=== PATIENT | female | born 1970 | race African-American/Black ===

== ENCOUNTER 2021-06-27 11:14 | Emergency (ER) | payer OTHER ==
[2021-06-27 12:33] VITALS: BMI 24.2
[2021-06-27] MEDS ORDERED: PRESCRIPTION PAD 1 EACH EACH NR ONE (15:11)
[2021-06-28 13:16] VITALS: BP 126/82; PULSE 96; TEMP 99.1
== END 2021-06-28 13:44 | disposition home or self-care (01) ==
LOC: JER 11:14
DX: Z48.01 Encounter for change or removal of surgical wound dressing (principal)
CPT/HCPCS: 99281-25

== ENCOUNTER 2022-06-08 12:45 | Inpatient (IN) | payer OTHER ==
[2022-06-08] MEDS ORDERED: SODIUM CHLORIDE 2,082 ML IV ONE (12:55)
[2022-06-08] MEDS ORDERED: VANCOMYCIN 1 GM in D5W (PRE-DOCKED) 1,000 MG/250 ML IVPB ONE (13:05)
[2022-06-08] MEDS ORDERED: PIPERACILLIN/TAZOB 4.5 GM 4.5 GM in DEXTROSE 5%-WATER 100 ML IVPB ONE (13:05)
[2022-06-08] MEDS ORDERED: VANCOMYCIN/WATER FOR INJ (PEG) 1,000 MG/200 ML BAG IVPB ONE (13:11)
[2022-06-08] MEDS ORDERED: PIPERACILLIN/TAZOB 4.5 GM 4.5 GM/100 ML BAG IVPB ONE (13:11)
[2022-06-08] MEDS ORDERED: ACETAMINOPHEN 1000 MG/100 ML BAG IVPB ONE (13:24)
[2022-06-08] MEDS ORDERED: ACETAMINOPHEN INJECTION 100 ML IVPB ONE (13:39)
[2022-06-08 14:39] LABS: HEMATOCRIT 33.8 % (32.4-45.2); HEMOGLOBIN 10.8 GM/dL (10.7-15.3); MCHC 31.9 g/dl (32.0-36.0); MEAN CELL VOLUME 75.2 fl (80-96); MEAN PLT VOLUME 9.3 fl (7.5-11.1); PLATELET COUNT 342 10^3/uL (134-434); RBC 4.49 M/mm3 (3.60-5.2); RDW 15.3 % (11.6-15.6); WHITE BLOOD COUNT 23.3 K/mm3 (4.0-10.0)
[2022-06-08 14:47] LABS: INR 1.58 (0.83-1.09); PROTHROMBIN TIME (PATIENT) 18.2 SEC (9.7-13.0)
[2022-06-08 14:50] LABS: EPI CELLS >36 /uL (0-25.1); HYALINE CASTS 3 /uL (0-3.1); PH,URINE >= 9.0 (5.0-8.0); URINE APPEARANCE TURBID; URINE BACTERIA 2469 /uL (0-1359); URINE BILIRUBIN 1+ (NEGATIVE); URINE COLOR RED; URINE GLUCOSE (UA) NEGATIVE (NEGATIVE); URINE KETONE NEGATIVE (NEGATIVE); URINE LEUK ESTERASE 3+ (NEGATIVE); URINE NITRITE POSITIVE (NEGATIVE); URINE PROTEIN 3+ (NEGATIVE); URINE RBC 714 /uL (0-23.9); URINE UROBILINOGEN 0.2 mg/dL (0.2-1.0); URINE WBC 73 /uL (0-25.8)
[2022-06-08 14:56] LABS: CHLORIDE 98 mmol/L (98-107); SODIUM 132 mmol/L (136-145)
[2022-06-08 15:00] LABS: BLOOD UREA NITROGEN 70.2 mg/dL (7-18); CO2 20 mmol/L (21-32); GLUCOSE,RANDOM 137 mg/dL (74-106)
[2022-06-08 15:01] LABS: ALBUMIN 2.2 g/dl (3.4-5.0)
[2022-06-08 15:02] LABS: ANISOCYTOSIS 1+; MACROCYTOSIS 0
[2022-06-08 15:03] LABS: SGOT/AST 71 U/L (15-37); SGPT/ALT 95 U/L (13-61)
[2022-06-08 15:06] LABS: BILIRUBIN,TOTAL 0.4 mg/dL (0.2-1); TOT PROT 7.8 g/dl (6.4-8.2); VENOUS BASE EXCESS -0.6 mmol/L (-2-2); VENOUS O2 SATURATION 89.2 % (70-80); VENOUS PCO2 38.8 mmHg (38-52); VENOUS PH 7.407 (7.310-7.410)
[2022-06-08 15:07] LABS: ALK PHOS 207 U/L (45-117)
[2022-06-08 15:31] LABS: ANION GAP 13 MMOL/L (8-16)
[2022-06-08] MEDS ORDERED: CALCIUM GLUCONATE 10% - 1,000 MG/10 ML VIAL IVPB ONE (15:34)
[2022-06-08] MEDS ORDERED: INSULIN REGULAR HUMAN 100 UNITS/ML *VIAL IVPUSH ONE (15:37)
[2022-06-08] MEDS: ALBUTEROL SO4 2.5/IPRATROPIUM 0.5 INH SOL 3 ML VIAL.NEB. NEB SCH ×4 (15:45→16:45)
[2022-06-08] MEDS ORDERED: DEXTROSE 50%-WATER - 25 GM/50 ML VIAL IVPUSH ONE (15:52)
[2022-06-08] MEDS ORDERED: ALBUTEROL SO4 2.5/IPRATROPIUM 0.5 INH SOL 3 ML VIAL.NEB. NEB ONE (16:06)
[2022-06-08] MEDS ORDERED: CALCIUM GLUCONATE 10% - 1,000 MG/10 ML VIAL ONE (16:07)
[2022-06-08] MEDS ORDERED: DEXTROSE 50%-WATER 25 GM/50 ML DISP.SYRIN ONE (16:07)
[2022-06-08] MEDS ORDERED: INSULIN REGULAR HUMAN 100 UNITS/ML *VIAL ONE (16:08)
[2022-06-08] MEDS ORDERED: LACTATED RINGERS SOLUTION 1000 ML INFUS.BAG IV ONE (17:39)
[2022-06-08 21:52] LABS: CALCIUM 9.2 mg/dL (8.5-10.1)
[2022-06-08] MEDS ORDERED: SODIUM PHOSPHATE/NA BIPHOS 133 ML ENEMA RC ONE (21:52)
[2022-06-08 21:53] LABS: BLOOD UREA NITROGEN 60.5 mg/dL (7-18)
[2022-06-08 21:55] LABS: CREATININE 2.3 mg/dL (0.55-1.3)
[2022-06-08 23:01] LABS: BILIRUBIN,DIRECT 0.3 mg/dL (0.0-0.2)
[2022-06-08 23:03] LABS: BILIRUBIN,TOTAL 0.5 mg/dL (0.2-1); TOT PROT 7.2 g/dl (6.4-8.2)
[2022-06-08] MEDS ORDERED: ACETAMINOPHEN 1000 MG/100 ML BAG IVPB PRN (23:10)
[2022-06-08] MEDS ORDERED: SODIUM CHLORIDE 1,000 ML IV SCH (23:15)
[2022-06-08] MEDS: POLYETHYLENE GLYCOL (HEALTHYLAX) 3350 17 GM PACKET PO SCH (23:39)
[2022-06-09] MEDS: PIPERACILLIN/TAZOB 3.375 GM 3.375 GM in DEXTROSE 5%-WATER - 50 ML IVPB SCH ×6 (00:04→17:44)
[2022-06-09 03:12] VITALS: BMI 24.5
[2022-06-09 08:44] LABS: BASO % 0.2 % (0-2.0); EOS % 0.5 % (0-4.5); HEMATOCRIT 31.9 % (32.4-45.2); HEMOGLOBIN 9.9 GM/dL (10.7-15.3); LYMPH % 4.7 % (8-40); MCH 23.7 pg (25.7-33.7); MEAN CELL VOLUME 76.6 fl (80-96); MEAN PLT VOLUME 9.2 fl (7.5-11.1); MONO % 5.4 % (3.8-10.2); NEUT % 89.2 % (42.8-82.8); PLATELET COUNT 307 10^3/uL (134-434); RBC 4.17 M/mm3 (3.60-5.2); RDW 15.7 % (11.6-15.6); WHITE BLOOD COUNT 15.3 K/mm3 (4.0-10.0)
[2022-06-09 09:03] LABS: CREATININE 1.7 mg/dL (0.55-1.3)
[2022-06-09 09:04] LABS: BLOOD UREA NITROGEN 46.5 mg/dL (7-18)
[2022-06-09 09:06] LABS: BILIRUBIN,TOTAL 0.5 mg/dL (0.2-1)
[2022-06-09 09:07] LABS: CALCIUM 9.2 mg/dL (8.5-10.1); MAGNESIUM 2.2 mg/dL (1.8-2.4); PHOSPHOROUS 4.9 mg/dL (2.5-4.9)
[2022-06-09] MEDS ORDERED: VANCOMYCIN 1 GM in D5W (PRE-DOCKED) 1,000 MG/250 ML IVPB SCH (10:00)
[2022-06-09] MEDS ORDERED: VANCOMYCIN/WATER FOR INJ (PEG) 1,000 MG/200 ML BAG IVPB SCH (10:00)
[2022-06-09] MEDS ORDERED: VANCOMYCIN 1 GM/200 ML PREMIX BAG IVPB SCH (10:00)
[2022-06-09] MEDS: POLYETHYLENE GLYCOL (HEALTHYLAX) 3350 17 GM PACKET PO SCH (11:12)
[2022-06-09] MEDS ORDERED: ACETAMINOPHEN 1000 MG/100 ML BAG IVPB PRN (15:42)
[2022-06-09] MEDS ORDERED: SODIUM CHLORIDE 1,000 ML IV SCH (15:42)
[2022-06-09] MEDS ORDERED: PIPERACILLIN/TAZOB 3.375 GM 3.375 GM in DEXTROSE 5%-WATER - 50 ML IVPB SCH (18:00)
[2022-06-09] MEDS: SODIUM CHLORIDE 0.45% 1,000 ML IV SCH (18:27)
[2022-06-09] MEDS: CARVEDILOL 25 MG TABLET (FP) GT SCH (22:20)
[2022-06-09] MEDS: METOPROLOL TARTRATE 25 MG TABLET (FP) GT SCH (22:20)
[2022-06-10] MEDS: PIPERACILLIN/TAZOB 3.375 GM 3.375 GM in DEXTROSE 5%-WATER - 50 ML IVPB SCH ×2 (02:53→11:25)
[2022-06-10] MEDS: SODIUM CHLORIDE 0.45% 1,000 ML IV SCH (06:26)
[2022-06-10 09:26] LABS: HEMATOCRIT 26.7 % (32.4-45.2); HEMOGLOBIN 8.4 GM/dL (10.7-15.3); MCH 23.9 pg (25.7-33.7); MCHC 31.4 g/dl (32.0-36.0); MEAN CELL VOLUME 76.1 fl (80-96); MEAN PLT VOLUME 9.6 fl (7.5-11.1); PLATELET COUNT 295 10^3/uL (134-434); RBC 3.51 M/mm3 (3.60-5.2); RDW 15.5 % (11.6-15.6); WHITE BLOOD COUNT 11.6 K/mm3 (4.0-10.0)
[2022-06-10 09:52] LABS: ALBUMIN 1.8 g/dl (3.4-5.0); BLOOD UREA NITROGEN 34.6 mg/dL (7-18); CALCIUM 8.9 mg/dL (8.5-10.1); MAGNESIUM 1.8 mg/dL (1.8-2.4)
[2022-06-10 09:55] LABS: PHOSPHOROUS 2.1 mg/dL (2.5-4.9); TOT PROT 6.5 g/dl (6.4-8.2)
[2022-06-10 09:56] LABS: BILIRUBIN,TOTAL 0.3 mg/dL (0.2-1)
[2022-06-10] MEDS ORDERED: POLYETHYLENE GLYCOL (HEALTHYLAX) 3350 17 GM PACKET PO SCH (10:00)
[2022-06-10] MEDS ORDERED: VANCOMYCIN 1 GM in D5W (PRE-DOCKED) 1,000 MG/250 ML IVPB SCH (10:00)
[2022-06-10] MEDS: CARVEDILOL 25 MG TABLET (FP) GT SCH ×2 (11:26→22:16)
[2022-06-10] MEDS: METOPROLOL TARTRATE 25 MG TABLET (FP) GT SCH ×2 (11:26→22:16)
[2022-06-10] MEDS: ERTAPENEM SODIUM 1 GM in SODIUM CHLORIDE 50 ML IVPB SCH (15:10)
[2022-06-10] MEDS: METHIMAZOLE 10 MG TABLET PO SCH ×3 (17:15→23:46)
[2022-06-10] MEDS ORDERED: METHIMAZOLE 10 MG TABLET GT SCH (23:12)
[2022-06-10] MEDS: METHIMAZOLE 10 MG TABLET GT SCH (23:45)
[2022-06-11] MEDS: METHIMAZOLE 10 MG TABLET GT SCH ×3 (06:25→22:06)
[2022-06-11 10:55] LABS: BASO % 0.5 % (0-2.0); EOS % 3.6 % (0-4.5); HEMATOCRIT 29.5 % (32.4-45.2); HEMOGLOBIN 9.7 GM/dL (10.7-15.3); LYMPH % 16.4 % (8-40); MCH 24.8 pg (25.7-33.7); MCHC 32.8 g/dl (32.0-36.0); MEAN CELL VOLUME 75.7 fl (80-96); MEAN PLT VOLUME 8.7 fl (7.5-11.1); MONO % 9.1 % (3.8-10.2); NEUT % 70.4 % (42.8-82.8); PLATELET COUNT 326 10^3/uL (134-434); RBC 3.89 M/mm3 (3.60-5.2); RDW 15.8 % (11.6-15.6); WHITE BLOOD COUNT 8.3 K/mm3 (4.0-10.0)
[2022-06-11 11:21] LABS: ALBUMIN 1.9 g/dl (3.4-5.0); BLOOD UREA NITROGEN 22.7 mg/dL (7-18); CALCIUM 8.9 mg/dL (8.5-10.1)
[2022-06-11 11:24] LABS: CREATININE 0.7 mg/dL (0.55-1.3)
[2022-06-11 11:26] LABS: BILIRUBIN,TOTAL 0.2 mg/dL (0.2-1)
[2022-06-11] MEDS: POLYETHYLENE GLYCOL (HEALTHYLAX) 3350 17 GM PACKET GT SCH (11:48)
[2022-06-11] MEDS: ERTAPENEM SODIUM 1 GM in SODIUM CHLORIDE 50 ML IVPB SCH (11:49)
[2022-06-11] MEDS: METOPROLOL TARTRATE 25 MG TABLET (FP) GT SCH ×2 (11:50→22:06)
[2022-06-11] MEDS: CARVEDILOL 25 MG TABLET (FP) GT SCH ×2 (11:50→22:06)
[2022-06-12] MEDS: METHIMAZOLE 10 MG TABLET GT SCH ×3 (06:52→22:47)
[2022-06-12] MEDS ORDERED: DEXTROSE 5%-WATER - 1,000 ML IV SCH (08:30)
[2022-06-12] MEDS: ERTAPENEM SODIUM 1 GM in SODIUM CHLORIDE 50 ML IVPB SCH (11:31)
[2022-06-12] MEDS: POLYETHYLENE GLYCOL (HEALTHYLAX) 3350 17 GM PACKET GT SCH (11:31)
[2022-06-12] MEDS: METOPROLOL TARTRATE 25 MG TABLET (FP) GT SCH ×2 (11:32→22:47)
[2022-06-12] MEDS: CARVEDILOL 25 MG TABLET (FP) GT SCH ×2 (11:32→22:47)
[2022-06-12 13:35] LABS: CALCIUM 8.8 mg/dL (8.5-10.1)
[2022-06-12 13:36] LABS: ALBUMIN 1.9 g/dl (3.4-5.0); BLOOD UREA NITROGEN 18.3 mg/dL (7-18); MAGNESIUM 1.5 mg/dL (1.8-2.4)
[2022-06-12 13:39] LABS: CREATININE 0.6 mg/dL (0.55-1.3)
[2022-06-12 13:40] LABS: BILIRUBIN,TOTAL 0.2 mg/dL (0.2-1); TOT PROT 7.2 g/dl (6.4-8.2)
[2022-06-12 13:41] LABS: PHOSPHOROUS 3.3 mg/dL (2.5-4.9)
[2022-06-12] MEDS: DEXTROSE 5%-WATER - 1,000 ML IV SCH (22:48)
[2022-06-13] MEDS: METHIMAZOLE 10 MG TABLET GT SCH ×3 (06:01→22:36)
[2022-06-13] MEDS: METOPROLOL TARTRATE 25 MG TABLET (FP) GT SCH ×2 (09:55→22:36)
[2022-06-13] MEDS: CARVEDILOL 25 MG TABLET (FP) GT SCH ×2 (09:55→22:37)
[2022-06-13] MEDS: POLYETHYLENE GLYCOL (HEALTHYLAX) 3350 17 GM PACKET GT SCH (09:55)
[2022-06-13 09:58] LABS: HEMATOCRIT 27.6 % (32.4-45.2); HEMOGLOBIN 8.9 GM/dL (10.7-15.3); MCH 24.4 pg (25.7-33.7); MCHC 32.2 g/dl (32.0-36.0); MEAN CELL VOLUME 75.8 fl (80-96); MEAN PLT VOLUME 9.1 fl (7.5-11.1); PLATELET COUNT 317 10^3/uL (134-434); RBC 3.63 M/mm3 (3.60-5.2); RDW 15.8 % (11.6-15.6)
[2022-06-13 10:50] LABS: ALBUMIN 1.8 g/dl (3.4-5.0); BLOOD UREA NITROGEN 16.4 mg/dL (7-18); CALCIUM 8.6 mg/dL (8.5-10.1); MAGNESIUM 1.5 mg/dL (1.8-2.4)
[2022-06-13 10:53] LABS: CREATININE 0.6 mg/dL (0.55-1.3); PHOSPHOROUS 3.1 mg/dL (2.5-4.9)
[2022-06-13 10:54] LABS: BILIRUBIN,TOTAL 0.1 mg/dL (0.2-1); TOT PROT 6.8 g/dl (6.4-8.2)
[2022-06-13] MEDS: ERTAPENEM SODIUM 1 GM in SODIUM CHLORIDE 50 ML IVPB SCH (11:47)
[2022-06-13] MEDS: DEXTROSE 5%-WATER - 1,000 ML IV SCH (14:53)
[2022-06-13] MEDS ORDERED: MAGNESIUM 2GM/50ML STERILE WATER IVPB IVPB ONE (15:50)
[2022-06-14] MEDS: METHIMAZOLE 10 MG TABLET GT SCH ×3 (06:31→21:05)
[2022-06-14 09:11] LABS: HEMATOCRIT 26.7 % (32.4-45.2); HEMOGLOBIN 8.7 GM/dL (10.7-15.3); MCH 24.7 pg (25.7-33.7); MCHC 32.5 g/dl (32.0-36.0); MEAN CELL VOLUME 75.8 fl (80-96); MEAN PLT VOLUME 9.2 fl (7.5-11.1); PLATELET COUNT 354 10^3/uL (134-434); RBC 3.52 M/mm3 (3.60-5.2); RDW 15.9 % (11.6-15.6); WHITE BLOOD COUNT 11.1 K/mm3 (4.0-10.0)
[2022-06-14 09:40] LABS: ALBUMIN 1.8 g/dl (3.4-5.0); CALCIUM 8.8 mg/dL (8.5-10.1)
[2022-06-14 09:42] LABS: BILIRUBIN,TOTAL 0.2 mg/dL (0.2-1)
[2022-06-14 09:43] LABS: BLOOD UREA NITROGEN 16.3 mg/dL (7-18); CREATININE 0.6 mg/dL (0.55-1.3); PHOSPHOROUS 3.2 mg/dL (2.5-4.9)
[2022-06-14] MEDS: METOPROLOL TARTRATE 25 MG TABLET (FP) GT SCH ×2 (09:44→21:05)
[2022-06-14] MEDS: CARVEDILOL 25 MG TABLET (FP) GT SCH ×2 (09:44→21:04)
[2022-06-14] MEDS: POLYETHYLENE GLYCOL (HEALTHYLAX) 3350 17 GM PACKET GT SCH (09:44)
[2022-06-14 09:45] LABS: MAGNESIUM 1.7 mg/dL (1.8-2.4)
[2022-06-14] MEDS ORDERED: MAGNESIUM 2GM/50ML STERILE WATER IVPB IVPB ONE (13:27)
[2022-06-15] MEDS: METHIMAZOLE 10 MG TABLET GT SCH ×3 (06:41→22:12)
[2022-06-15 08:55] LABS: HEMATOCRIT 28.1 % (32.4-45.2); HEMOGLOBIN 8.8 GM/dL (10.7-15.3); MCH 23.8 pg (25.7-33.7); MCHC 31.5 g/dl (32.0-36.0); MEAN CELL VOLUME 75.4 fl (80-96); MEAN PLT VOLUME 9.4 fl (7.5-11.1); PLATELET COUNT 400 10^3/uL (134-434); RBC 3.72 M/mm3 (3.60-5.2); RDW 15.7 % (11.6-15.6); WHITE BLOOD COUNT 7.6 K/mm3 (4.0-10.0)
[2022-06-15 09:19] LABS: ALBUMIN 1.8 g/dl (3.4-5.0); BLOOD UREA NITROGEN 20.3 mg/dL (7-18); MAGNESIUM 1.8 mg/dL (1.8-2.4)
[2022-06-15 09:22] LABS: CREATININE 0.8 mg/dL (0.55-1.3); PHOSPHOROUS 3.6 mg/dL (2.5-4.9)
[2022-06-15 09:23] LABS: TOT PROT 7.2 g/dl (6.4-8.2)
[2022-06-15 09:34] LABS: BILIRUBIN,TOTAL 0.1 mg/dL (0.2-1)
[2022-06-15] MEDS: FAMOTIDINE 40 MG/5 ML ORAL SUSPENSION PEG SCH (10:34)
[2022-06-15] MEDS: MULTIVIT-MINERALS ORAL LIQUID GT SCH (10:34)
[2022-06-15] MEDS: POLYETHYLENE GLYCOL (HEALTHYLAX) 3350 17 GM PACKET GT SCH (10:35)
[2022-06-15] MEDS: CARVEDILOL 25 MG TABLET (FP) GT SCH ×2 (10:35→22:12)
[2022-06-15] MEDS: CYANOCOBALAMIN 1,000 MCG TABLET (FP) GT SCH (10:35)
[2022-06-15] MEDS: FOLIC ACID 1 MG TABLET (FP) GT SCH (10:35)
[2022-06-15] MEDS: METOPROLOL TARTRATE 25 MG TABLET (FP) GT SCH ×2 (10:35→22:12)
[2022-06-15] MEDS: AMINO ACIDS/PROTEIN HYDROLYS 30 ML LIQUID.PKT PO SCH (17:47)
[2022-06-15] MEDS: VANCOMYCIN 250 MG/5 ML ORAL SOLUTION PO SCH ×2 (17:47→23:42)
[2022-06-16] MEDS: METHIMAZOLE 10 MG TABLET GT SCH ×3 (05:14→21:53)
[2022-06-16] MEDS: VANCOMYCIN 250 MG/5 ML ORAL SOLUTION PO SCH ×4 (05:17→23:55)
[2022-06-16] MEDS: CARVEDILOL 25 MG TABLET (FP) GT SCH ×2 (09:51→21:56)
[2022-06-16] MEDS: AMINO ACIDS/PROTEIN HYDROLYS 30 ML LIQUID.PKT PO SCH ×2 (09:51→18:13)
[2022-06-16] MEDS: METOPROLOL TARTRATE 25 MG TABLET (FP) GT SCH ×2 (09:52→21:56)
[2022-06-16] MEDS: CYANOCOBALAMIN 1,000 MCG TABLET (FP) GT SCH (09:52)
[2022-06-16] MEDS: FOLIC ACID 1 MG TABLET (FP) GT SCH (09:52)
[2022-06-16] MEDS: MULTIVIT-MINERALS ORAL LIQUID GT SCH (09:52)
[2022-06-16] MEDS: POLYETHYLENE GLYCOL (HEALTHYLAX) 3350 17 GM PACKET GT SCH (09:52)
[2022-06-16] MEDS: FAMOTIDINE 40 MG/5 ML ORAL SUSPENSION PEG SCH (09:53)
[2022-06-17] MEDS: VANCOMYCIN 250 MG/5 ML ORAL SOLUTION PO SCH ×2 (05:02→14:51)
[2022-06-17] MEDS: METHIMAZOLE 10 MG TABLET GT SCH ×3 (05:40→21:07)
[2022-06-17] MEDS: AMINO ACIDS/PROTEIN HYDROLYS 30 ML LIQUID.PKT PO SCH (09:27)
[2022-06-17] MEDS: CYANOCOBALAMIN 1,000 MCG TABLET (FP) GT SCH (09:29)
[2022-06-17] MEDS: FOLIC ACID 1 MG TABLET (FP) GT SCH (09:30)
[2022-06-17] MEDS: POLYETHYLENE GLYCOL (HEALTHYLAX) 3350 17 GM PACKET GT SCH (09:30)
[2022-06-17] MEDS: MULTIVIT-MINERALS ORAL LIQUID GT SCH (09:31)
[2022-06-17] MEDS: CARVEDILOL 25 MG TABLET (FP) GT SCH ×2 (09:31→21:07)
[2022-06-17] MEDS: METOPROLOL TARTRATE 25 MG TABLET (FP) GT SCH ×2 (09:32→21:07)
[2022-06-17] MEDS: FAMOTIDINE 40 MG/5 ML ORAL SUSPENSION PEG SCH (09:34)
[2022-06-17] MEDS: AMINO ACIDS/PROTEIN HYDROLYS 30 ML LIQUID.PKT GT SCH (17:40)
[2022-06-17] MEDS: VANCOMYCIN 250 MG/5 ML ORAL SOLUTION GT SCH (17:40)
[2022-06-18] MEDS: VANCOMYCIN 250 MG/5 ML ORAL SOLUTION GT SCH ×4 (01:45→17:07)
[2022-06-18] MEDS: METHIMAZOLE 10 MG TABLET GT SCH ×3 (05:45→22:37)
[2022-06-18] MEDS: MULTIVIT-MINERALS ORAL LIQUID GT SCH (10:12)
[2022-06-18] MEDS: CYANOCOBALAMIN 1,000 MCG TABLET (FP) GT SCH (10:12)
[2022-06-18] MEDS: FOLIC ACID 1 MG TABLET (FP) GT SCH (10:12)
[2022-06-18] MEDS: METOPROLOL TARTRATE 25 MG TABLET (FP) GT SCH ×2 (10:12→22:37)
[2022-06-18] MEDS: CARVEDILOL 25 MG TABLET (FP) GT SCH ×2 (10:12→22:37)
[2022-06-18] MEDS: POLYETHYLENE GLYCOL (HEALTHYLAX) 3350 17 GM PACKET GT SCH (10:12)
[2022-06-18] MEDS: AMINO ACIDS/PROTEIN HYDROLYS 30 ML LIQUID.PKT GT SCH ×2 (10:12→17:07)
[2022-06-18] MEDS: FAMOTIDINE 40 MG/5 ML ORAL SUSPENSION PEG SCH (10:14)
[2022-06-19] MEDS: VANCOMYCIN 250 MG/5 ML ORAL SOLUTION GT SCH ×5 (01:26→23:01)
[2022-06-19] MEDS: METHIMAZOLE 10 MG TABLET GT SCH ×3 (06:40→22:55)
[2022-06-19 09:31] LABS: CALCIUM 9.3 mg/dL (8.5-10.1)
[2022-06-19 09:32] LABS: BLOOD UREA NITROGEN 29.3 mg/dL (7-18)
[2022-06-19 09:34] LABS: CREATININE 0.7 mg/dL (0.55-1.3)
[2022-06-19] MEDS: POLYETHYLENE GLYCOL (HEALTHYLAX) 3350 17 GM PACKET GT SCH (10:23)
[2022-06-19] MEDS: AMINO ACIDS/PROTEIN HYDROLYS 30 ML LIQUID.PKT GT SCH ×2 (10:23→16:31)
[2022-06-19] MEDS: MULTIVIT-MINERALS ORAL LIQUID GT SCH (10:24)
[2022-06-19] MEDS: CYANOCOBALAMIN 1,000 MCG TABLET (FP) GT SCH (10:24)
[2022-06-19] MEDS: FOLIC ACID 1 MG TABLET (FP) GT SCH (10:24)
[2022-06-19] MEDS: CARVEDILOL 25 MG TABLET (FP) GT SCH ×2 (10:24→22:55)
[2022-06-19] MEDS: METOPROLOL TARTRATE 25 MG TABLET (FP) GT SCH ×2 (10:24→22:55)
[2022-06-19] MEDS: FAMOTIDINE 40 MG/5 ML ORAL SUSPENSION PEG SCH (10:32)
[2022-06-20] MEDS: METHIMAZOLE 10 MG TABLET GT SCH ×2 (06:30→13:21)
[2022-06-20] MEDS: VANCOMYCIN 250 MG/5 ML ORAL SOLUTION GT SCH ×2 (06:30→13:21)
[2022-06-20] MEDS: AMINO ACIDS/PROTEIN HYDROLYS 30 ML LIQUID.PKT GT SCH (10:03)
[2022-06-20] MEDS: POLYETHYLENE GLYCOL (HEALTHYLAX) 3350 17 GM PACKET GT SCH (10:03)
[2022-06-20] MEDS: FAMOTIDINE 40 MG/5 ML ORAL SUSPENSION PEG SCH (10:03)
[2022-06-20] MEDS: MULTIVIT-MINERALS ORAL LIQUID GT SCH (10:04)
[2022-06-20] MEDS: FOLIC ACID 1 MG TABLET (FP) GT SCH (10:04)
[2022-06-20] MEDS: METOPROLOL TARTRATE 25 MG TABLET (FP) GT SCH (10:04)
[2022-06-20] MEDS: CARVEDILOL 25 MG TABLET (FP) GT SCH (10:04)
[2022-06-20] MEDS: CYANOCOBALAMIN 1,000 MCG TABLET (FP) GT SCH (10:04)
[2022-06-20 14:13] VITALS: BP 108/75; PULSE 109; RESP 20; TEMP 98.1
== END 2022-06-20 17:40 | DRG 698 ==
LOC: JER 12:45 → JERBED 14:11 → J4W 23:05 → J7W 06-09 15:10
PROVIDERS: ADMIT Internal Medicine
DX: T83.511A Infection and inflammatory reaction due to indwelling urethral catheter, initial encounter (principal); A41.59 Other Gram-negative sepsis; G93.41 Metabolic encephalopathy; N17.9 Acute kidney failure, unspecified; E87.0 Hyperosmolality and hypernatremia; N13.30 Unspecified hydronephrosis; A04.72 Enterocolitis due to Clostridium difficile, not specified as recurrent; Z16.12 Extended spectrum beta lactamase (ESBL) resistance; N39.0 Urinary tract infection, site not specified; Z93.1 Gastrostomy status; E87.5 Hyperkalemia; E05.90 Thyrotoxicosis, unspecified without thyrotoxic crisis or storm; I48.91 Unspecified atrial fibrillation; J44.9 Chronic obstructive pulmonary disease, unspecified; I10 Essential (primary) hypertension; L89.210 Pressure ulcer of right hip, unstageable; L89.220 Pressure ulcer of left hip, unstageable; G35 Multiple sclerosis; R31.9 Hematuria, unspecified; E86.0 Dehydration; R74.01 Elevation of levels of liver transaminase levels; K59.00 Constipation, unspecified; D72.829 Elevated white blood cell count, unspecified; Y83.9 Surgical procedure, unspecified as the cause of abnormal reaction of the patient, or of later complication, without mention of misadventure at the time of the procedure
CPT/HCPCS: 0241U-QW; 36415; 70450-TC; 71045-TC-FY; 74176-TC; 74230-TC-FY; 76775-TC; 80048; 80053; 80061; 80076; 81003; 82550; 82553; 82803; 82962; 83036; 83605; 83735; 84100; 84436; 84439; 84443; 84479; 84480; 84481; 84484; 85025; 85027; 85610; 85651; 85730; 86140; 86850; 86900; 86901; 87040; 87086; 87186; 87493; 92611-GN; 93005; 93010; 93306-TC; 99291; C9803-CS; U0003; U0005

== ENCOUNTER 2024-08-08 15:50 | Emergency (ER) | payer OTHER ==
[2024-08-08 16:12] VITALS: BMI 28.5
[2024-08-08] MEDS ORDERED: ACETAMINOPHEN INJECTION 100 ML ONE (16:19)
[2024-08-08] MEDS: SODIUM CHLORIDE 0.9% 500 ML INFUS.BAG IV ONE ×2 (16:46→19:30)
[2024-08-08] MEDS: ACETAMINOPHEN 1000 MG/100 ML BAG IVPB ONE (16:46)
[2024-08-08 16:53] LABS: VENOUS BASE EXCESS -2.2 mmol/L (-2-2); VENOUS O2 SATURATION 91.7 % (70-80); VENOUS PCO2 30.3 mmHg (38-52); VENOUS PH 7.45 (7.310-7.410)
[2024-08-08 16:56] LABS: BASO % 0.1 % (0-2.0); EOS % 0.3 % (0-4.5); HEMATOCRIT 41.3 % (32.4-45.2); HEMOGLOBIN 13.3 GM/dL (10.7-15.3); LYMPH % 10.6 % (8-40); MCH 25.4 pg (25.7-33.7); MCHC 32.1 g/dl (32.0-36.0); MEAN CELL VOLUME 79.2 fl (80-96); MONO % 1.8 % (3.8-10.2); NEUT % 87.2 % (42.8-82.8); PLATELET COUNT 600 10^3/uL (134-434); RBC 5.22 M/mm3 (3.60-5.2); RDW 15.7 % (11.6-15.6); WHITE BLOOD COUNT 8.7 K/mm3 (4.0-10.0)
[2024-08-08 17:07] LABS: INR 1.94 (0.83-1.09); PROTHROMBIN TIME (PATIENT) 21.9 SEC (9.7-13.0)
[2024-08-08 17:10] LABS: ACTIVATED PTT 35.3 SECONDS (25.2-36.5)
[2024-08-08 17:14] LABS: POTASSIUM 4.4 mmol/L (3.5-5.1)
[2024-08-08 17:16] LABS: CALCIUM 9.1 mg/dL (8.5-10.1)
[2024-08-08 17:17] LABS: ALBUMIN 2.4 g/dl (3.4-5.0); BLOOD UREA NITROGEN 16.2 mg/dL (7-18)
[2024-08-08 17:20] LABS: CREATININE 1.2 mg/dL (0.55-1.3)
[2024-08-08 17:22] LABS: BILIRUBIN,TOTAL 0.8 mg/dL (0.2-1); TOT PROT 8.3 g/dl (6.4-8.2)
[2024-08-08] MEDS: VANCOMYCIN 1,000 MG in DEXTROSE 5%-WATER - 250 ML IVPB ONE (18:05)
[2024-08-08] MEDS ORDERED: PIPERACILLIN/TAZOB 4.5 GM 4.5 GM/100 ML BAG IVPB ONE (18:09)
[2024-08-08] MEDS: PIPERACILLIN/TAZOB 4.5 GM 4.5 GM in DEXTROSE 5%-WATER 100 ML IVPB ONE (18:28)
[2024-08-08] MEDS ORDERED: methylPREDNISolone NA SUCC 125 MG/2 ML VIAL ONE (18:43)
[2024-08-08] MEDS: methylPREDNISolone NA SUCC 125 MG/2 ML VIAL IVPB ONE (18:51)
[2024-08-08] MEDS ORDERED: DAPTOMYCIN 300 MG in SODIUM CHLORIDE 50 ML IVPB ONE (19:00)
[2024-08-08] MEDS ORDERED: CEFEPIME HCL/D5W 1 GM/50 ML BAG IVPB ONE (19:54)
[2024-08-08] MEDS: CEFEPIME HCL 1 GM VIAL (RESTRICTED TO ID) IVPB ONE (19:55)
[2024-08-08 20:52] LABS: EPI CELLS >36 /uL (0-25.1); HYALINE CASTS 13 /uL (0-3.1); URINE APPEARANCE TURBID; URINE BACTERIA 58 /uL (0-1359); URINE BILIRUBIN 2+ (NEGATIVE); URINE COLOR DK YELLOW; URINE GLUCOSE (UA) NEGATIVE (NEGATIVE); URINE KETONE TRACE (NEGATIVE); URINE LEUK ESTERASE 1+ (NEGATIVE); URINE NITRITE NEGATIVE (NEGATIVE); URINE PROTEIN 2+ (NEGATIVE); URINE RBC 81 /uL (0-23.9); URINE WBC 1681 /uL (0-25.8)
[2024-08-08 21:54] VITALS: BP 116/70; PULSE 131; RESP 26; TEMP 98.5
[2024-08-08 22:06] LABS: YEAST NONE SEEN (NEGATIVE)
== END 2024-08-08 22:00 | disposition short-term general hospital (02) ==
LOC: JER 15:50
PROC: 05HM33Z Insertion of Infusion Device into Right Internal Jugular Vein, Percutaneous Approach (ICD-10-PCS; principal; 2024-08-08)
PROC: 3E03329 Introduction of Other Anti-infective into Peripheral Vein, Percutaneous Approach (ICD-10-PCS; 2024-08-08)
PROC: 3E033NZ Introduction of Analgesics, Hypnotics, Sedatives into Peripheral Vein, Percutaneous Approach (ICD-10-PCS; 2024-08-08)
PROC: 3E03329 Introduction of Other Anti-infective into Peripheral Vein, Percutaneous Approach (ICD-10-PCS; 2024-08-08)
PROC: 3E033GC Introduction of Other Therapeutic Substance into Peripheral Vein, Percutaneous Approach (ICD-10-PCS; 2024-08-08)
PROC: 3E033GC Introduction of Other Therapeutic Substance into Peripheral Vein, Percutaneous Approach (ICD-10-PCS; 2024-08-08)
DX: J18.9 Pneumonia, unspecified organism (principal); I31.39 Other pericardial effusion (noninflammatory); J90 Pleural effusion, not elsewhere classified; N39.0 Urinary tract infection, site not specified; R00.0 Tachycardia, unspecified; R50.9 Fever, unspecified; Z20.822 Contact with and (suspected) exposure to COVID-19
CPT/HCPCS: 0241U-QW; 36415; 71045-TC-FY; 71250-TC; 76937; 80053; 81003; 82803; 83605; 84443; 84484; 85025; 85610; 85730; 86850; 86900; 86901; 87040; 93005; 93010; 93308; 99291; J0131

== ENCOUNTER 2024-11-06 17:31 | Inpatient (IN) | payer OTHER ==
[2024-11-06 23:00] LABS: BASO % 0.7 % (0-2.0); EOS % 0.5 % (0-4.5); HEMATOCRIT 32.8 % (32.4-45.2); HEMOGLOBIN 10.5 GM/dL (10.7-15.3); LYMPH % 15.2 % (8-40); MCH 24.2 pg (25.7-33.7); MEAN CELL VOLUME 75.7 fl (80-96); MONO % 10.9 % (3.8-10.2); NEUT % 72.7 % (42.8-82.8); PLATELET COUNT 734 10^3/uL (134-434); RBC 4.33 M/mm3 (3.60-5.2); WHITE BLOOD COUNT 13.6 K/mm3 (4.0-10.0)
[2024-11-06 23:37] LABS: BASO % 0.7 % (0-2.0); EOS % 0.3 % (0-4.5); HEMATOCRIT 32.7 % (32.4-45.2); HEMOGLOBIN 10.3 GM/dL (10.7-15.3); LYMPH % 17.3 % (8-40); MCH 23.7 pg (25.7-33.7); MCHC 31.5 g/dl (32.0-36.0); MEAN CELL VOLUME 75.1 fl (80-96); MEAN PLT VOLUME 7.3 fl (7.5-11.1); MONO % 9.1 % (3.8-10.2); NEUT % 72.6 % (42.8-82.8); PLATELET COUNT 774 10^3/uL (134-434); RBC 4.35 M/mm3 (3.60-5.2); WHITE BLOOD COUNT 13.1 K/mm3 (4.0-10.0)
[2024-11-06 23:57] LABS: POTASSIUM 3.8 mmol/L (3.5-5.1)
[2024-11-06 23:59] LABS: CALCIUM 8.3 mg/dL (8.5-10.1)
[2024-11-07] LABS: ALBUMIN 1.4 g/dl (3.4-5.0); BLOOD UREA NITROGEN 7.3 mg/dL (7-18)
[2024-11-07] MEDS ORDERED: LINEZOLID 600 MG PREMIX BAG 600 MG/300 ML BAG IVPB ONE (00:02)
[2024-11-07 00:03] LABS: CREATININE 0.4 mg/dL (0.55-1.3)
[2024-11-07] MEDS ORDERED: MEROPENEM-0.9% SODIUM CHLORIDE 1 GM/50 ML BAG IVPB ONE (00:03)
[2024-11-07 00:04] LABS: BILIRUBIN,TOTAL 0.2 mg/dL (0.2-1)
[2024-11-07 00:05] LABS: TOT PROT 6.5 g/dl (6.4-8.2)
[2024-11-07] MEDS: SODIUM CHLORIDE 0.9% 500 ML INFUS.BAG IV ONE (00:37)
[2024-11-07] MEDS: MEROPENEM 1 GM in DEXTROSE 5%-WATER 100 ML IVPB ONE (00:37)
[2024-11-07] MEDS: LINEZOLID 600 MG PREMIX BAG 600 MG in PREMIX 300 IV ONE (00:37)
[2024-11-07 00:59] LABS: EPI CELLS >36 /uL (0-25.1); HYALINE CASTS 767 /uL (0-3.1); PH,URINE 5.5 (5.0-8.0); URINE APPEARANCE TURBID; URINE BILIRUBIN 1+ (NEGATIVE); URINE COLOR DK YELLOW; URINE GLUCOSE (UA) NEGATIVE (NEGATIVE); URINE KETONE TRACE (NEGATIVE); URINE LEUK ESTERASE 2+ (NEGATIVE); URINE NITRITE NEGATIVE (NEGATIVE); URINE PROTEIN 2+ (NEGATIVE); URINE UROBILINOGEN 0.2 mg/dL (0.2-1.0); URINE WBC 17725 /uL (0-25.8)
[2024-11-07] MEDS: ACETAMINOPHEN 325 MG TABLET (FP) PO ONE (01:08)
[2024-11-07] MEDS: LACTATED RINGERS SOLUTION 1000 ML INFUS.BAG IV ONE (01:08)
[2024-11-07 01:20] LABS: VENOUS BASE EXCESS -0.8 mmol/L (-2-2); VENOUS PH 7.411 (7.310-7.410)
[2024-11-07 02:09] LABS: INR 2.08 (0.83-1.09); PROTHROMBIN TIME (PATIENT) 22.9 SEC (9.7-13.0)
[2024-11-07 02:11] LABS: ACTIVATED PTT 35.6 SECONDS (25.2-36.5)
[2024-11-07] MEDS ORDERED: ACETAMINOPHEN 325 MG TABLET (FP) PO PRN (05:32)
[2024-11-07] MEDS ORDERED: MAG HYDROX/AL HYDROX/SIMETH -MYLANTA- ORAL SUSPENSION PO PRN (05:32)
[2024-11-07] MEDS: LACTATED RINGERS SOLUTION 1,000 ML/1,000 ML INFUS.BAG IV SCH (07:04)
[2024-11-07 08:15] LABS: BASO % 0.5 % (0-2.0); EOS % 0.8 % (0-4.5); HEMATOCRIT 29.1 % (32.4-45.2); HEMOGLOBIN 9.5 GM/dL (10.7-15.3); LYMPH % 17.4 % (8-40); MCH 24.2 pg (25.7-33.7); MCHC 32.5 g/dl (32.0-36.0); MEAN CELL VOLUME 74.6 fl (80-96); MEAN PLT VOLUME 7.2 fl (7.5-11.1); MONO % 12.8 % (3.8-10.2); NEUT % 68.5 % (42.8-82.8); PLATELET COUNT 668 10^3/uL (134-434); RDW 18.2 % (11.6-15.6); WHITE BLOOD COUNT 11.5 K/mm3 (4.0-10.0)
[2024-11-07 08:25] LABS: POTASSIUM 3.6 mmol/L (3.5-5.1)
[2024-11-07 08:31] LABS: ALBUMIN 1.2 g/dl (3.4-5.0); CALCIUM 7.7 mg/dL (8.5-10.1)
[2024-11-07 08:34] LABS: CREATININE 0.4 mg/dL (0.55-1.3)
[2024-11-07 08:36] LABS: BILIRUBIN,TOTAL 0.3 mg/dL (0.2-1)
[2024-11-07 09:02] LABS: URINE BACTERIA 435 /uL (0-1359); URINE CRYSTALS NONE SEEN /hpf; URINE RBC 894 /uL (0-23.9); YEAST PRESENT (NEGATIVE)
[2024-11-07] MEDS: PANTOPRAZOLE 40 MG TABLET PO SCH (10:48)
[2024-11-07] MEDS: MAGNESIUM OXIDE 400 MG TABLET (FP) PO SCH (10:48)
[2024-11-07] MEDS: ASCORBIC ACID 500 MG TABLET (FP) PO SCH (10:48)
[2024-11-07] MEDS: OXYBUTYNIN CHLORIDE 5 MG TABLET PO SCH (10:48)
[2024-11-07] MEDS: APIXABAN 5 MG TABLET PO SCH (10:48)
[2024-11-07] MEDS ORDERED: COLCHICINE 0.6 MG TAB PO SCH (12:12)
[2024-11-07] MEDS: COLCHICINE 0.6 MG CAPSULE PO SCH (12:25)
[2024-11-07] MEDS: MEROPENEM 1 GM in DEXTROSE 5%-WATER 100 ML IVPB SCH (12:25)
[2024-11-07] MEDS: COLCHICINE 0.6 MG TAB PO SCH (12:30)
[2024-11-07] MEDS: MEROPENEM-0.9% SODIUM CHLORIDE 1 GM/50 ML BAG IVPB SCH (12:30)
[2024-11-07] MEDS: LINEZOLID 600 MG PREMIX BAG 600 MG/300 ML BAG IVPB SCH (13:03)
[2024-11-07 15:41] VITALS: BMI 22.6
[2024-11-07] MEDS: COLLAGENASE CLOSTRIDIUM HIST. 30 GRAMS TUBE TP SCH (18:01)
[2024-11-07] MEDS: SENNOSIDES 8.6MG TABLET (FP) PO SCH (21:59)
[2024-11-07] MEDS ORDERED: MIRTAZAPINE 15 MG TABLET (FP) PO SCH (22:00)
[2024-11-07] MEDS ORDERED: SENNOSIDES 8.6MG TABLET (FP) PO SCH (22:00)
[2024-11-07] MEDS ORDERED: MAG HYDROX/AL HYDROX/SIMETH 30 ML UNIT-DOSE CUP PO PRN (23:53)
[2024-11-08 08:54] LABS: BASO % 0.8 % (0-2.0); HEMATOCRIT 26.5 % (32.4-45.2); HEMOGLOBIN 8.6 GM/dL (10.7-15.3); LYMPH % 18.5 % (8-40); MCH 24.8 pg (25.7-33.7); MCHC 32.4 g/dl (32.0-36.0); MEAN CELL VOLUME 76.7 fl (80-96); MEAN PLT VOLUME 7.3 fl (7.5-11.1); MONO % 9.2 % (3.8-10.2); NEUT % 69.5 % (42.8-82.8); PLATELET COUNT 586 10^3/uL (134-434); RBC 3.46 M/mm3 (3.60-5.2); RDW 17.9 % (11.6-15.6); WHITE BLOOD COUNT 10.2 K/mm3 (4.0-10.0)
[2024-11-08 09:29] LABS: POTASSIUM 3.4 mmol/L (3.5-5.1)
[2024-11-08 09:31] LABS: ALBUMIN 1.1 g/dl (3.4-5.0); BLOOD UREA NITROGEN 4.5 mg/dL (7-18); CALCIUM 7.2 mg/dL (8.5-10.1); MAGNESIUM 1.1 mg/dL (1.8-2.4)
[2024-11-08 09:35] LABS: CREATININE 0.4 mg/dL (0.55-1.3)
[2024-11-08 09:37] LABS: BILIRUBIN,TOTAL 0.2 mg/dL (0.2-1); TOT PROT 5.3 g/dl (6.4-8.2)
[2024-11-08] MEDS: AMINO ACIDS/PROTEIN HYDROLYS 30 ML LIQUID.PKT PO SCH (09:39)
[2024-11-08] MEDS: MULTIVITAMINS (DAILY MVI) TABLET (FP) PO SCH (09:40)
[2024-11-08] MEDS: MEROPENEM 1 GM in DEXTROSE 5%-WATER 100 ML IVPB SCH (11:22)
[2024-11-08 11:24] VITALS: BP 94/67; PULSE 110; RESP 18; TEMP 98.4
[2024-11-08] MEDS: LINEZOLID 600 MG PREMIX BAG 600 MG/300 ML BAG IVPB SCH (11:27)
[2024-11-08] MEDS: ERTAPENEM SODIUM 1 GM in SODIUM CHLORIDE 50 ML IVPB SCH (11:39)
== END 2024-11-08 14:36 | DRG 193 ==
LOC: JER 17:31 → JERBED 11-07 00:46 → J7W 11-07 09:19
PROVIDERS: ADMIT Student in an Organized Health Care Education/Training Program
DX: J18.9 Pneumonia, unspecified organism (principal); E43 Unspecified severe protein-calorie malnutrition; L89.154 Pressure ulcer of sacral region, stage 4; R53.2 Functional quadriplegia; G93.41 Metabolic encephalopathy; N39.0 Urinary tract infection, site not specified; J98.11 Atelectasis; G35 Multiple sclerosis; I11.0 Hypertensive heart disease with heart failure; I50.9 Heart failure, unspecified; E05.90 Thyrotoxicosis, unspecified without thyrotoxic crisis or storm; D50.9 Iron deficiency anemia, unspecified; I48.0 Paroxysmal atrial fibrillation
CPT/HCPCS: 36415; 71045-TC-FY; 80053; 81003; 82728; 82803; 83540; 83550; 83605; 83735; 84484; 85025; 85045; 85610; 85651; 85730; 86140; 87040; 87086; 87186; 93005; 93010; 99285-25

== ENCOUNTER 2025-01-30 14:11 | Inpatient (IN) | payer OTHER ==
[2025-01-30 16:30] LABS: HEMOGLOBIN 8.2 g/dL (11.2-15.7)
[2025-01-30 16:31] LABS: HEMATOCRIT 25.7 % (34.1-44.9); MCHC 31.9 g/dl (32.2-35.5); MEAN CELL VOLUME 91.1 fl (79.4-94.8); MEAN PLT VOLUME 11.1 fl (9.4-12.3); PLATELET COUNT 340 x10^3/uL (182-369); RDW 19.8 % (12.3-16.6)
[2025-01-30 16:34] LABS: VENOUS BASE EXCESS 0.4 mmol/L (-2-2); VENOUS O2 SATURATION 52.8 % (70-80); VENOUS PCO2 38.7 mmHg (38-52); VENOUS PH 7.424 (7.310-7.410)
[2025-01-30 16:38] LABS: PROTHROMBIN TIME (PATIENT) 44.6 SEC (9.7-13.0)
[2025-01-30 16:41] LABS: ACTIVATED PTT 34.2 SECONDS (25.2-36.5)
[2025-01-30 17:02] LABS: CHLORIDE 116 mmol/L (98-107); POTASSIUM 3.8 mmol/L (3.5-5.1); SODIUM 149 mmol/L (136-145)
[2025-01-30 17:04] LABS: CALCIUM 7.9 mg/dL (8.5-10.1)
[2025-01-30 17:05] LABS: ALBUMIN 0.7 g/dl (3.4-5.0); ANION GAP 8 mmol/L (4-13); CO2 25 mmol/L (21-32); GLUCOSE,RANDOM 147 mg/dL (74-106)
[2025-01-30 17:08] LABS: SGOT/AST 581 U/L (15-37); SGPT/ALT 238 U/L (13-61)
[2025-01-30 17:09] LABS: BILIRUBIN,TOTAL 0.7 mg/dL (0.2-1); INR 4.05 (0.83-1.09)
[2025-01-30 17:10] LABS: TOT PROT 5.2 g/dl (6.4-8.2)
[2025-01-30 17:11] LABS: ALK PHOS 592 U/L (45-117)
[2025-01-30 17:14] LABS: LACTIC ACID 5.3 mmol/L (0.4-2.0)
[2025-01-30] MEDS: LACTATED RINGERS SOLUTION 1,000 ML/1,000 ML INFUS.BAG IV SCH ×2 (17:30→19:45)
[2025-01-30 18:21] LABS: EPI CELLS >36 /uL (0-25.1); HYALINE CASTS 5 /uL (0-3.1); PH,URINE 7.5 (5.0-8.0); URINE APPEARANCE TURBID; URINE BACTERIA >9,000 /uL (0-1359); URINE BILIRUBIN NEGATIVE (NEGATIVE); URINE COLOR YELLOW; URINE GLUCOSE (UA) NEGATIVE (NEGATIVE); URINE KETONE NEGATIVE (NEGATIVE); URINE LEUK ESTERASE 3+ (NEGATIVE); URINE NITRITE NEGATIVE (NEGATIVE); URINE PROTEIN 2+ (NEGATIVE); URINE UROBILINOGEN 0.2 mg/dL (0.2-1.0); URINE WBC 5980 /uL (0-25.8)
[2025-01-30] MEDS ORDERED: PIPERACILLIN/TAZOB 3.375 GM 3.375 GM/50 ML BAG IVPB ONE (18:21)
[2025-01-30] MEDS: PIPERACILLIN/TAZOB 3.375 GM 3.375 GM in DEXTROSE 5%-WATER - 50 ML IVPB ONE (18:21)
[2025-01-30 18:56] LABS: LACTIC ACID 4.9 mmol/L (0.4-2.0)
[2025-01-30 19:05] LABS: URINE RBC 749.8 /uL (0-23.9)
[2025-01-30] MEDS ORDERED: MIDODRINE HCL 5 MG TABLET PO SCH (22:37)
[2025-01-30] MEDS: MIDODRINE HCL 5 MG TABLET PO SCH (23:01)
[2025-01-30] MEDS: LACTATED RINGERS SOLUTION 1,000 ML/1,000 ML INFUS.BAG IV STA (23:01)
[2025-01-30] MEDS ORDERED: NAPH,MB-DB/K PH,MBDB POWDER PACKET ONE (23:08)
[2025-01-30] MEDS ORDERED: MIDODRINE HCL 5 MG TABLET ONE (23:16)
[2025-01-30 23:19] LABS: POTASSIUM 3.8 mmol/L (3.5-5.1)
[2025-01-30 23:21] LABS: CALCIUM 7.9 mg/dL (8.5-10.1)
[2025-01-30 23:23] LABS: ALBUMIN 0.7 g/dl (3.4-5.0); BLOOD UREA NITROGEN 15.1 mg/dL (7-18)
[2025-01-30 23:26] LABS: BILIRUBIN,TOTAL 0.7 mg/dL (0.2-1); TOT PROT 5.1 g/dl (6.4-8.2)
[2025-01-30] MEDS: MIDODRINE HCL 5 MG TABLET PO ONE (23:33)
[2025-01-30] MEDS: NAPH,MB-DB/K PH,MBDB POWDER PACKET PO ONE (23:33)
[2025-01-30 23:56] LABS: LACTIC ACID 5.4 mmol/L (0.4-2.0)
[2025-01-31] MEDS ORDERED: AMIODARONE IN DEXTROSE,ISO-OSM 360 MG/200 ML BAG IV SCH (02:00)
[2025-01-31] MEDS ORDERED: AMIODARONE IN DEXTROSE,ISO-OSM 150 MG/100 ML BAG ONE (02:37)
[2025-01-31] MEDS: AMIODARONE HCL INJECTION 150 MG in DEXTROSE 5%-WATER - 100 ML IVPB ONE (02:55)
[2025-01-31] MEDS ORDERED: ERTAPENEM SODIUM 1 GM in SODIUM CHLORIDE 50 ML IVPB SCH ×2 (02:56→10:00)
[2025-01-31] MEDS: AMIODARONE IN DEXTROSE,ISO-OSM 360 MG/200 ML BAG IV SCH ×3 (03:15→09:38)
[2025-01-31] MEDS: NOREPINEPHRINE 0.9 % NACL 8 MG/250 ML BAG IVPB SCH ×2 (03:30→07:00)
[2025-01-31] MEDS: LACTATED RINGERS SOLUTION 1,000 ML/1,000 ML INFUS.BAG IV SCH ×2 (04:58→11:15)
[2025-01-31] MEDS: AMIODARONE IN DEXTROSE,ISO-OSM 150 MG/100 ML BAG IVPB ONE (05:27)
[2025-01-31] MEDS: ERTAPENEM SODIUM 1 GM in SODIUM CHLORIDE 50 ML IVPB SCH (05:38)
[2025-01-31 07:15] LABS: HEMOGLOBIN 7.9 g/dL (11.2-15.7)
[2025-01-31 07:16] LABS: HEMATOCRIT 25.2 % (34.1-44.9); MCHC 31.3 g/dl (32.2-35.5); MEAN CELL VOLUME 89.7 fl (79.4-94.8); MEAN PLT VOLUME 11.3 fl (9.4-12.3); PLATELET COUNT 327 x10^3/uL (182-369)
[2025-01-31 07:32] LABS: POTASSIUM 3.3 mmol/L (3.5-5.1)
[2025-01-31 07:39] LABS: LACTIC ACID 4.8 mmol/L (0.4-2.0)
[2025-01-31 07:52] LABS: ALBUMIN 0.7 g/dl (3.4-5.0); BLOOD UREA NITROGEN 15.2 mg/dL (7-18); CALCIUM 7.8 mg/dL (8.5-10.1)
[2025-01-31 07:56] LABS: BILIRUBIN,TOTAL 0.6 mg/dL (0.2-1); CREATININE 0.9 mg/dL (0.55-1.3); PHOSPHOROUS 1.8 mg/dL (2.5-4.9); TOT PROT 5.1 g/dl (6.4-8.2)
[2025-01-31] MEDS ORDERED: AMINO ACIDS/PROTEIN HYDROLYS 30 ML LIQUID.PKT PO SCH (08:00)
[2025-01-31] MEDS: APIXABAN 5 MG TABLET PO SCH (09:10)
[2025-01-31] MEDS: FLUDROCORTISONE ACETATE 0.1 MG TABLET (FP) PO SCH (09:10)
[2025-01-31] MEDS: OXYBUTYNIN CHLORIDE 5 MG TABLET PO SCH (09:10)
[2025-01-31] MEDS: PANTOPRAZOLE SODIUM 40 MG VIAL IVPUSH SCH (09:10)
[2025-01-31] MEDS: AMINO ACIDS/PROTEIN HYDROLYS 30 ML LIQUID.PKT PO SCH (09:10)
[2025-01-31] MEDS: CASPOFUNGIN ACETATE 50 MG in SODIUM CHLORIDE 250 ML IVPB SCH (09:12)
[2025-01-31] MEDS: POTASSIUM PHOSPHATE 15 MM in SODIUM CHLORIDE 250 ML IVPB ONE (09:36)
[2025-01-31] MEDS: KCL 20 MEQ PREMIX BAG 20 MEQ/100 ML INFUS.BAG IVPB SCH (09:36)
[2025-01-31] MEDS: FIDAXOMICIN 200 MG TABLET PO SCH (09:39)
[2025-01-31] MEDS ORDERED: PANTOPRAZOLE SODIUM 40 MG VIAL IVPUSH SCH (10:00)
[2025-01-31] MEDS ORDERED: CASPOFUNGIN ACETATE 50 MG in SODIUM CHLORIDE 250 ML IVPB SCH ×4 (10:00)
[2025-01-31] MEDS ORDERED: ERTAPENEM SODIUM 1 GM VIAL IVPB SCH ×2 (10:00)
[2025-01-31] MEDS ORDERED: OXYBUTYNIN CHLORIDE 5 MG TABLET PO SCH (10:00)
[2025-01-31] MEDS ORDERED: FLUDROCORTISONE ACETATE 0.1 MG TABLET (FP) PO SCH (10:00)
[2025-01-31] MEDS ORDERED: APIXABAN 5 MG TABLET PO SCH (10:00)
[2025-01-31] MEDS ORDERED: PANTOPRAZOLE 40 MG TABLET PO SCH (10:00)
[2025-01-31] MEDS: MEROPENEM 1 GM in DEXTROSE 5%-WATER 100 ML IVPB SCH (11:11)
[2025-01-31 12:13] LABS: HEPATITIS B SURF AG NON-MATERN NON-REACTIVE (NONREACTIVE)
[2025-01-31] MEDS: MUPIROCIN 2% TOPICAL OINTMENT FOR DECOLONIZATION NS SCH (13:06)
[2025-01-31] MEDS: SODIUM PHOSPHATE - 15 MM in SODIUM CHLORIDE 250 ML IVPB ONE (13:07)
[2025-01-31 16:02] LABS: HEMATOCRIT 23.8 % (34.1-44.9); HEMOGLOBIN 7.7 g/dL (11.2-15.7); MCHC 32.4 g/dl (32.2-35.5); MEAN CELL VOLUME 89.5 fl (79.4-94.8); MEAN PLT VOLUME 10.6 fl (9.4-12.3); PLATELET COUNT 310 x10^3/uL (182-369); RDW 19.2 % (12.3-16.6)
[2025-01-31 16:09] LABS: INR 2.92 (0.83-1.09); PROTHROMBIN TIME (PATIENT) 31.8 SEC (9.7-13.0)
[2025-01-31 16:12] LABS: ACTIVATED PTT 36.6 SECONDS (25.2-36.5)
[2025-01-31 16:27] LABS: POTASSIUM 4.2 mmol/L (3.5-5.1)
[2025-01-31 16:29] LABS: ALBUMIN 0.7 g/dl (3.4-5.0); BLOOD UREA NITROGEN 12.5 mg/dL (7-18)
[2025-01-31 16:33] LABS: BILIRUBIN,TOTAL 0.4 mg/dL (0.2-1); CREATININE 0.8 mg/dL (0.55-1.3); TOT PROT 4.9 g/dl (6.4-8.2)
[2025-01-31 17:02] LABS: LACTIC ACID 2.6 mmol/L (0.4-2.0)
[2025-01-31] MEDS: CHLORHEXIDINE GLUCONATE 4% CLEANSER FOR DECOLONIZATION TP SCH (21:57)
[2025-02-01 06:52] LABS: HEMATOCRIT 23.5 % (34.1-44.9); HEMOGLOBIN 7.5 g/dL (11.2-15.7); MCHC 31.9 g/dl (32.2-35.5); MEAN PLT VOLUME 10.5 fl (9.4-12.3); PLATELET COUNT 309 x10^3/uL (182-369); RDW 18.9 % (12.3-16.6)
[2025-02-01 07:09] LABS: POTASSIUM 3.5 mmol/L (3.5-5.1)
[2025-02-01 07:13] LABS: ALBUMIN 0.7 g/dl (3.4-5.0); BLOOD UREA NITROGEN 10.6 mg/dL (7-18)
[2025-02-01 07:15] LABS: CALCIUM 7.8 mg/dL (8.5-10.1); MAGNESIUM 1.8 mg/dL (1.8-2.4)
[2025-02-01 07:18] LABS: CREATININE 0.7 mg/dL (0.55-1.3); PHOSPHOROUS 2.8 mg/dL (2.5-4.9)
[2025-02-01 07:19] LABS: BILIRUBIN,TOTAL 0.4 mg/dL (0.2-1); TOT PROT 4.9 g/dl (6.4-8.2)
[2025-02-01] MEDS: KCL 10 MEQ IVPB 10 MEQ/100 ML INFUS.BAG IVPB SCH (09:02)
[2025-02-01] MEDS: MAGNESIUM 1GM/D5W - 1 GM/100 ML IVPB IVPB ONE (11:39)
[2025-02-01] MEDS ORDERED: FLUDROCORTISONE ACETATE 0.1 MG TABLET (FP) PO SCH (12:19)
[2025-02-01] MEDS: CEFTAZIDIME/AVIBACTAM 2.5 GM in DEXTROSE 5%-WATER - 250 ML IVPB SCH (13:29)
[2025-02-01] MEDS: MIDODRINE HCL 5 MG TABLET PO SCH (16:54)
[2025-02-01] MEDS: FLUDROCORTISONE ACETATE 0.1 MG TABLET (FP) PO SCH (18:12)
[2025-02-01] MEDS: APIXABAN 5 MG TABLET PO SCH (22:00)
[2025-02-01] MEDS: AMIODARONE HCL 200 MG TABLET PO SCH (22:00)
[2025-02-02 07:09] LABS: HEMATOCRIT 23.1 % (34.1-44.9); HEMOGLOBIN 7.3 g/dL (11.2-15.7); MCHC 31.6 g/dl (32.2-35.5); MEAN CELL VOLUME 89.5 fl (79.4-94.8); PLATELET COUNT 318 x10^3/uL (182-369); POTASSIUM 3.3 mmol/L (3.5-5.1); RDW 18.9 % (12.3-16.6)
[2025-02-02 07:17] LABS: CALCIUM 7.3 mg/dL (8.5-10.1)
[2025-02-02 07:18] LABS: BLOOD UREA NITROGEN 8.9 mg/dL (7-18); MAGNESIUM 1.9 mg/dL (1.8-2.4)
[2025-02-02 07:19] LABS: ALBUMIN 0.7 g/dl (3.4-5.0)
[2025-02-02 07:21] LABS: CREATININE 0.7 mg/dL (0.55-1.3)
[2025-02-02 07:22] LABS: PHOSPHOROUS 2.4 mg/dL (2.5-4.9)
[2025-02-02 07:23] LABS: BILIRUBIN,TOTAL 0.4 mg/dL (0.2-1); TOT PROT 4.8 g/dl (6.4-8.2)
[2025-02-02] MEDS: KCL 20 MEQ PREMIX BAG 20 MEQ/100 ML INFUS.BAG IVPB SCH (09:20)
[2025-02-02] MEDS: MIDODRINE HCL 5 MG TABLET PO SCH ×2 (17:44→21:03)
[2025-02-02] MEDS: METOPROLOL TARTRATE 25 MG TABLET (FP) PO SCH (17:45)
[2025-02-02] MEDS: DOXYCYCLINE HYCLATE 100 MG TABLET PO SCH (19:30)
[2025-02-02] MEDS: AMIODARONE HCL 200 MG TABLET PO SCH (21:03)
[2025-02-03 07:11] LABS: ABSOLUTE IMMATURE GRANULOCYTES 0.14 x10^3/uL (0.0-0.031); BASOPHILS # 0.04 x10^3/uL (0.01-0.08); EOSINOPHILS # 0.29 x10^3/uL (0.04-0.36); HEMATOCRIT 24.4 % (34.1-44.9); HEMOGLOBIN 7.4 g/dL (11.2-15.7); MCHC 30.3 g/dl (32.2-35.5); MEAN CELL VOLUME 92.1 fl (79.4-94.8); MEAN PLT VOLUME 11.2 fl (9.4-12.3); MONOCYTE # 0.97 x10^3/uL (0.24-0.86); MONOCYTE % 6.8 % (4.7-12.5); PLATELET COUNT 329 x10^3/uL (182-369); RDW 18.8 % (12.3-16.6)
[2025-02-03 07:24] LABS: POTASSIUM 3.6 mmol/L (3.5-5.1)
[2025-02-03 07:27] LABS: CALCIUM 7.2 mg/dL (8.5-10.1)
[2025-02-03 07:28] LABS: ALBUMIN 0.6 g/dl (3.4-5.0); BLOOD UREA NITROGEN 8.3 mg/dL (7-18); MAGNESIUM 1.7 mg/dL (1.8-2.4)
[2025-02-03 07:31] LABS: CREATININE 0.7 mg/dL (0.55-1.3); PHOSPHOROUS 1.6 mg/dL (2.5-4.9)
[2025-02-03 07:32] LABS: BILIRUBIN,TOTAL 0.4 mg/dL (0.2-1)
[2025-02-03 07:33] LABS: TOT PROT 4.8 g/dl (6.4-8.2)
[2025-02-03] MEDS: MAGNESIUM 2GM/50ML STERILE WATER IVPB IVPB ONE (07:58)
[2025-02-03] MEDS: NAPH,MB-DB/K PH,MBDB POWDER PACKET PO ONE (08:04)
[2025-02-03 15:34] VITALS: BMI 27.8
[2025-02-04 07:39] LABS: HEMATOCRIT 22.7 % (34.1-44.9); MCHC 30.8 g/dl (32.2-35.5); MEAN CELL VOLUME 90.8 fl (79.4-94.8); PLATELET COUNT 351 x10^3/uL (182-369); RDW 18.3 % (12.3-16.6)
[2025-02-04 07:43] LABS: POTASSIUM 3.3 mmol/L (3.5-5.1)
[2025-02-04 07:45] LABS: ALBUMIN 0.6 g/dl (3.4-5.0); BLOOD UREA NITROGEN 9.3 mg/dL (7-18); CALCIUM 7.6 mg/dL (8.5-10.1)
[2025-02-04 07:46] LABS: MAGNESIUM 1.9 mg/dL (1.8-2.4)
[2025-02-04 07:48] LABS: CREATININE 0.7 mg/dL (0.55-1.3); PHOSPHOROUS 1.7 mg/dL (2.5-4.9)
[2025-02-04 07:50] LABS: BILIRUBIN,TOTAL 0.5 mg/dL (0.2-1); TOT PROT 4.5 g/dl (6.4-8.2)
[2025-02-04] MEDS: KCL 10 MEQ IVPB 10 MEQ/100 ML INFUS.BAG IVPB SCH (09:32)
[2025-02-04] MEDS: ASCORBIC ACID 500 MG TABLET (FP) PO SCH (09:34)
[2025-02-04] MEDS: NAPH,MB-DB/K PH,MBDB POWDER PACKET PO SCH (13:25)
[2025-02-04] MEDS ORDERED: DEXTROSE 50%-WATER 25 GM/50 ML DISP.SYRIN ONE (13:26)
[2025-02-04 18:00] LABS: HEMATOCRIT 28.5 % (34.1-44.9); HEMOGLOBIN 9.2 g/dL (11.2-15.7); MCHC 32.3 g/dl (32.2-35.5); MEAN CELL VOLUME 88.5 fl (79.4-94.8); PLATELET COUNT 328 x10^3/uL (182-369); RDW 17.7 % (12.3-16.6)
[2025-02-05 06:46] LABS: POTASSIUM 3.6 mmol/L (3.5-5.1)
[2025-02-05 06:51] LABS: ALBUMIN 0.6 g/dl (3.4-5.0); BLOOD UREA NITROGEN 10.6 mg/dL (7-18); CALCIUM 7.9 mg/dL (8.5-10.1); MAGNESIUM 1.9 mg/dL (1.8-2.4)
[2025-02-05 06:53] LABS: HEMATOCRIT 28.4 % (34.1-44.9); HEMOGLOBIN 9.1 g/dL (11.2-15.7); MEAN CELL VOLUME 87.1 fl (79.4-94.8); MEAN PLT VOLUME 11.5 fl (9.4-12.3); PLATELET COUNT 354 x10^3/uL (182-369); RDW 18.8 % (12.3-16.6)
[2025-02-05 06:54] LABS: CREATININE 0.8 mg/dL (0.55-1.3); PHOSPHOROUS 1.6 mg/dL (2.5-4.9)
[2025-02-05 06:56] LABS: BILIRUBIN,TOTAL 0.7 mg/dL (0.2-1); TOT PROT 4.6 g/dl (6.4-8.2)
[2025-02-05] MEDS: NAPH,MB-DB/K PH,MBDB POWDER PACKET PO ONE (08:54)
[2025-02-05] MEDS ORDERED: ACETAMINOPHEN INJECTION 100 ML ONE (12:44)
[2025-02-05] MEDS: ACETAMINOPHEN 1000 MG/100 ML BAG IVPB ONE (12:55)
[2025-02-06] MEDS: LACTATED RINGERS SOLUTION 1,000 ML/1,000 ML INFUS.BAG IV SCH ×2 (01:49→21:32)
[2025-02-06 06:58] LABS: HEMATOCRIT 26.1 % (34.1-44.9); HEMOGLOBIN 8.8 g/dL (11.2-15.7); MCHC 33.7 g/dl (32.2-35.5); MEAN CELL VOLUME 86.7 fl (79.4-94.8); MEAN PLT VOLUME 11.5 fl (9.4-12.3); PLATELET COUNT 354 x10^3/uL (182-369); RDW 18.9 % (12.3-16.6)
[2025-02-06 07:11] LABS: POTASSIUM 3.7 mmol/L (3.5-5.1)
[2025-02-06 07:27] LABS: ALBUMIN 0.6 g/dl (3.4-5.0); BLOOD UREA NITROGEN 11.4 mg/dL (7-18); CALCIUM 8.2 mg/dL (8.5-10.1); MAGNESIUM 1.9 mg/dL (1.8-2.4)
[2025-02-06 07:30] LABS: PHOSPHOROUS 1.7 mg/dL (2.5-4.9)
[2025-02-06 07:31] LABS: BILIRUBIN,TOTAL 0.5 mg/dL (0.2-1); TOT PROT 4.5 g/dl (6.4-8.2)
[2025-02-06 14:20] LABS: HEMATOCRIT 28.3 % (34.1-44.9); HEMOGLOBIN 9.1 g/dL (11.2-15.7); MCHC 32.2 g/dl (32.2-35.5); MEAN CELL VOLUME 88.4 fl (79.4-94.8); MEAN PLT VOLUME 11.7 fl (9.4-12.3); PLATELET COUNT 376 x10^3/uL (182-369); RDW 19.4 % (12.3-16.6)
[2025-02-06 14:29] LABS: INR 3.64 (0.83-1.09)
[2025-02-06] MEDS ORDERED: ACETAMINOPHEN INJECTION 100 ML ONE (14:40)
[2025-02-06] MEDS: ACETAMINOPHEN 1000 MG/100 ML BAG IVPB ONE (14:44)
[2025-02-06] MEDS: POTASSIUM PHOSPHATE 15 MM in SODIUM CHLORIDE 250 ML IVPB ONE (16:00)
[2025-02-06 18:35] LABS: ALBUMIN 0.6 g/dl (3.4-5.0)
[2025-02-06 18:37] LABS: BILIRUBIN,DIRECT 0.5 mg/dL (0.0-0.2)
[2025-02-06 18:40] LABS: BILIRUBIN,TOTAL 0.7 mg/dL (0.2-1); TOT PROT 4.5 g/dl (6.4-8.2)
[2025-02-06 18:43] LABS: INR 3.64 (0.83-1.09)
[2025-02-06 18:46] LABS: ACTIVATED PTT 43.9 SECONDS (25.2-36.5)
[2025-02-06] MEDS: CHLORHEXIDINE GLUCONATE 4% CLEANSER FOR DECOLONIZATION TP SCH (21:31)
[2025-02-06] MEDS: AMIODARONE HCL 200 MG TABLET PO SCH (21:31)
[2025-02-06] MEDS: NAPH,MB-DB/K PH,MBDB POWDER PACKET PO SCH (21:31)
[2025-02-06] MEDS: MIDODRINE HCL 5 MG TABLET PO SCH (21:32)
[2025-02-06] MEDS ORDERED: METOPROLOL TARTRATE 25 MG TABLET (FP) PO SCH (22:00)
[2025-02-06] MEDS ORDERED: APIXABAN 5 MG TABLET PO SCH (22:00)
[2025-02-06] MEDS: FIDAXOMICIN 200 MG TABLET PO SCH (22:36)
[2025-02-07] MEDS: CEFTAZIDIME/AVIBACTAM 2.5 GM in DEXTROSE 5%-WATER - 250 ML IVPB SCH (01:00)
[2025-02-07 08:39] LABS: MEAN CELL VOLUME 88.1 fl (79.4-94.8); RDW 19.4 % (12.3-16.6)
[2025-02-07] MEDS: AMINO ACIDS/PROTEIN HYDROLYS 30 ML LIQUID.PKT PO SCH (08:39)
[2025-02-07 08:41] LABS: HEMATOCRIT 27.5 % (34.1-44.9); MCHC 32.7 g/dl (32.2-35.5); MEAN PLT VOLUME 12.1 fl (9.4-12.3); PLATELET COUNT 354 x10^3/uL (182-369)
[2025-02-07 08:59] LABS: POTASSIUM 3.9 mmol/L (3.5-5.1)
[2025-02-07 09:02] LABS: CALCIUM 8.5 mg/dL (8.5-10.1)
[2025-02-07 09:03] LABS: ALBUMIN 0.6 g/dl (3.4-5.0); BLOOD UREA NITROGEN 13.2 mg/dL (7-18); MAGNESIUM 1.8 mg/dL (1.8-2.4)
[2025-02-07 09:06] LABS: CREATININE 1.2 mg/dL (0.55-1.3); PHOSPHOROUS 2.6 mg/dL (2.5-4.9)
[2025-02-07 09:07] LABS: BILIRUBIN,TOTAL 0.8 mg/dL (0.2-1); TOT PROT 4.5 g/dl (6.4-8.2)
[2025-02-07] MEDS: PANTOPRAZOLE SODIUM 40 MG VIAL IVPUSH SCH (09:46)
[2025-02-07] MEDS: OXYBUTYNIN CHLORIDE 5 MG TABLET PO SCH (09:49)
[2025-02-07] MEDS: METHIMAZOLE 5 MG TABLET PO SCH (09:49)
[2025-02-07] MEDS: ASCORBIC ACID 500 MG TABLET (FP) PO SCH (09:50)
[2025-02-07] MEDS: DOXYCYCLINE HYCLATE 100 MG TABLET PO SCH (09:50)
[2025-02-07] MEDS ORDERED: ALBUMIN HUMAN 25% 12.5 GM/50 ML VIAL IV ONE (10:30)
[2025-02-07] MEDS: ALBUMIN HUMAN 25% 100 ML VIAL IV ONE (14:30)
[2025-02-07] MEDS: FUROSEMIDE 40 MG/4 ML INJECTABLE VIAL IVPUSH ONE (14:46)
[2025-02-07] MEDS: FLUDROCORTISONE ACETATE 0.1 MG TABLET (FP) PO SCH (18:07)
[2025-02-07] MEDS: DRONABINOL 2.5 MG CAPSULE PO SCH (18:07)
[2025-02-08] MEDS: ALBUMIN HUMAN 25% 100 ML VIAL IV ONE (00:57)
[2025-02-08 01:00] LABS: HEMOGLOBIN 7.4 g/dL (11.2-15.7); MEAN PLT VOLUME 11.7 fl (9.4-12.3); RDW 19.8 % (12.3-16.6)
[2025-02-08 01:02] LABS: HEMATOCRIT 22.6 % (34.1-44.9); MCHC 32.7 g/dl (32.2-35.5); MEAN CELL VOLUME 89.3 fl (79.4-94.8); PLATELET COUNT 253 x10^3/uL (182-369)
[2025-02-08] MEDS: NOREPINEPHRINE 0.9 % NACL 8 MG/250 ML BAG IVPB SCH ×2 (01:06→09:15)
[2025-02-08] MEDS: ACETAMINOPHEN 1000 MG/100 ML BAG IVPB ONE ×2 (02:30→15:10)
[2025-02-08] MEDS ORDERED: ACETAMINOPHEN INJECTION 100 ML ONE ×2 (02:32→22:23)
[2025-02-08 03:01] LABS: INR 3.74 (0.83-1.09); PROTHROMBIN TIME (PATIENT) 40.8 SEC (9.7-13.0)
[2025-02-08 03:04] LABS: ACTIVATED PTT 49.9 SECONDS (25.2-36.5)
[2025-02-08] MEDS: ALBUMIN HUMAN 25% 100 ML VIAL IV SCH ×2 (06:34→13:37)
[2025-02-08] MEDS: FUROSEMIDE INJECTION 100 MG in SODIUM CHLORIDE 40 ML IVPB SCH ×3 (06:34→21:32)
[2025-02-08 07:46] LABS: URINE UREA NITROGEN 53 mg/dL (350-1000)
[2025-02-08 08:02] LABS: CREATININE, URINE RANDOM < 13.0 mg/dL (30-150)
[2025-02-08 08:48] LABS: HEMATOCRIT 26.2 % (34.1-44.9); HEMOGLOBIN 8.6 g/dL (11.2-15.7); MCHC 32.8 g/dl (32.2-35.5); MEAN CELL VOLUME 91.6 fl (79.4-94.8); PLATELET COUNT 227 x10^3/uL (182-369); RDW 17.2 % (12.3-16.6)
[2025-02-08] MEDS ORDERED: ALBUMIN HUMAN 25% 12.5 GM/50 ML VIAL IV ONE (09:01)
[2025-02-08 09:11] LABS: CALCIUM 9.6 mg/dL (8.5-10.1)
[2025-02-08 09:12] LABS: BLOOD UREA NITROGEN 14.5 mg/dL (7-18); MAGNESIUM 1.8 mg/dL (1.8-2.4)
[2025-02-08 09:15] LABS: CREATININE 1.6 mg/dL (0.55-1.3); PHOSPHOROUS 2.6 mg/dL (2.5-4.9)
[2025-02-08 09:17] LABS: BILIRUBIN,TOTAL 2.2 mg/dL (0.2-1); TOT PROT 5.1 g/dl (6.4-8.2)
[2025-02-08 09:21] LABS: ALBUMIN 2.8 g/dl (3.4-5.0)
[2025-02-08] MEDS: PANTOPRAZOLE SODIUM 40 MG VIAL IVPUSH SCH (09:23)
[2025-02-08] MEDS: PHYTONADIONE 10 MG/1 ML AMP IVPB SCH (09:23)
[2025-02-08] MEDS: MUPIROCIN 2% TOPICAL OINTMENT FOR DECOLONIZATION NS SCH (10:00)
[2025-02-08] MEDS: CEFTAZIDIME/AVIBACTAM 2.5 GM in DEXTROSE 5%-WATER - 250 ML IVPB SCH (10:09)
[2025-02-08] MEDS: VASopressin 40 UNITS/100 ML BAG IV SCH (10:11)
[2025-02-08] MEDS: FIDAXOMICIN 200 MG TABLET PO SCH (10:41)
[2025-02-08] MEDS: AMIODARONE HCL 200 MG TABLET PO SCH (10:41)
[2025-02-08] MEDS: NAPH,MB-DB/K PH,MBDB POWDER PACKET PO SCH (10:42)
[2025-02-08] MEDS: METHIMAZOLE 5 MG TABLET PO SCH (10:43)
[2025-02-08] MEDS: OXYBUTYNIN CHLORIDE 5 MG TABLET PO SCH (10:44)
[2025-02-08] MEDS: ASCORBIC ACID 500 MG TABLET (FP) PO SCH (10:45)
[2025-02-08] MEDS: DOXYCYCLINE HYCLATE 100 MG TABLET PO SCH (10:45)
[2025-02-08] MEDS: KCL 10 MEQ IVPB 10 MEQ/100 ML INFUS.BAG IVPB SCH ×3 (10:58→23:05)
[2025-02-08] MEDS: DRONABINOL 2.5 MG CAPSULE PO SCH (10:58)
[2025-02-08] MEDS: AMINO ACIDS/PROTEIN HYDROLYS 30 ML LIQUID.PKT PO SCH (11:59)
[2025-02-08] MEDS: MIDODRINE HCL 5 MG TABLET PO SCH (13:40)
[2025-02-08 15:11] LABS: HEMATOCRIT 24.6 % (34.1-44.9); HEMOGLOBIN 8.4 g/dL (11.2-15.7); MCHC 34.1 g/dl (32.2-35.5); MEAN CELL VOLUME 90.4 fl (79.4-94.8); MEAN PLT VOLUME 11.3 fl (9.4-12.3); PLATELET COUNT 207 x10^3/uL (182-369); RDW 17.5 % (12.3-16.6)
[2025-02-08 15:58] LABS: POTASSIUM 3.1 mmol/L (3.5-5.1)
[2025-02-08 15:59] LABS: CALCIUM 9.7 mg/dL (8.5-10.1); MAGNESIUM 1.7 mg/dL (1.8-2.4)
[2025-02-08 16:03] LABS: CREATININE 1.6 mg/dL (0.55-1.3); PHOSPHOROUS 2.6 mg/dL (2.5-4.9)
[2025-02-08] MEDS: MAGNESIUM SULFATE IN WATER 2 GM/50 ML IVPB IVPB ONE (16:54)
[2025-02-08] MEDS: FLUDROCORTISONE ACETATE 0.1 MG TABLET (FP) PO SCH (18:00)
[2025-02-08] MEDS: CHLORHEXIDINE GLUCONATE 4% CLEANSER FOR DECOLONIZATION TP SCH (21:33)
[2025-02-08] MEDS: FAMOTIDINE 20 MG TABLET PO SCH (21:35)
[2025-02-08] MEDS ORDERED: ACETAMINOPHEN 1000 MG/100 ML BAG IVPB PRN (22:14)
[2025-02-08] MEDS: ACETAMINOPHEN 1000 MG/100 ML BAG IVPB PRN (22:30)
[2025-02-09] MEDS: FAMOTIDINE 20 MG/50 ML IVPB 20 MG/50 ML MG IVPB ONE (01:00)
[2025-02-09 02:02] LABS: ARTERIAL BLD GAS O2 SATURATION 96.4 % (95-98); ARTERIAL BLOOD GAS PO2 76.5 mmHg (80-100); ARTERIAL BLOOD GAS pH 7.465 (7.350-7.450)
[2025-02-09 02:03] LABS: ALLENS TEST POSITIVE
[2025-02-09 07:57] LABS: PLATELET COUNT 184 x10^3/uL (182-369)
[2025-02-09 07:58] LABS: HEMATOCRIT 23.5 % (34.1-44.9); MEAN PLT VOLUME 12.9 fl (9.4-12.3); RDW 17.9 % (12.3-16.6)
[2025-02-09 08:20] LABS: INR 3.02 (0.83-1.09); PROTHROMBIN TIME (PATIENT) 33.2 SEC (9.7-13.0)
[2025-02-09 08:22] LABS: ACTIVATED PTT 53.2 SECONDS (25.2-36.5); POTASSIUM 3.8 mmol/L (3.5-5.1)
[2025-02-09 08:26] LABS: CALCIUM 9.6 mg/dL (8.5-10.1)
[2025-02-09 08:27] LABS: ALBUMIN 2.6 g/dl (3.4-5.0); BLOOD UREA NITROGEN 12.2 mg/dL (7-18); MAGNESIUM 2.1 mg/dL (1.8-2.4)
[2025-02-09 08:30] LABS: CREATININE 1.5 mg/dL (0.55-1.3)
[2025-02-09 08:31] LABS: BILIRUBIN,TOTAL 2.5 mg/dL (0.2-1); TOT PROT 4.7 g/dl (6.4-8.2)
[2025-02-09] MEDS: ACETAMINOPHEN 1000 MG/100 ML BAG IVPB SCH (13:19)
[2025-02-09] MEDS: INSULIN ASPART SLIDING SCALE (NOVOLOG) 1 VIAL SQ SCH (13:42)
[2025-02-09 14:07] VITALS: TEMP 96.5
[2025-02-09 15:59] LABS: INR 2.69 (0.83-1.09); PROTHROMBIN TIME (PATIENT) 29.6 SEC (9.7-13.0)
[2025-02-09] MEDS ORDERED: HYDROCORTISONE SOD SUCCINATE 100 MG/2 ML VIAL IVPUSH SCH (22:00)
[2025-02-10 00:29] VITALS: BP 116/59; PULSE 94; RESP 12
== END 2025-02-10 01:36 | disposition short-term general hospital (02) | DRG 871 ==
LOC: JER 14:11 → JERBED 18:34 → JICU 01-31 03:32 → J2W 02-06 06:20 → JICU 02-08 07:00
PROVIDERS: ADMIT Hospitalist; ATTEND Internal Medicine Pulmonary Disease
PROC: 02HV33Z Insertion of Infusion Device into Superior Vena Cava, Percutaneous Approach (ICD-10-PCS; principal; 2025-01-31)
PROC: B548ZZA Ultrasonography of Superior Vena Cava, Guidance (ICD-10-PCS; 2025-01-31)
PROC: 30233N1 Transfusion of Nonautologous Red Blood Cells into Peripheral Vein, Percutaneous Approach (ICD-10-PCS; 2025-02-04)
PROC: 02HV33Z Insertion of Infusion Device into Superior Vena Cava, Percutaneous Approach (ICD-10-PCS; 2025-02-06)
PROC: B548ZZA Ultrasonography of Superior Vena Cava, Guidance (ICD-10-PCS; 2025-02-06)
PROC: 05HF33Z Insertion of Infusion Device into Left Cephalic Vein, Percutaneous Approach (ICD-10-PCS; 2025-02-07)
PROC: B54NZZA Ultrasonography of Left Upper Extremity Veins, Guidance (ICD-10-PCS; 2025-02-07)
DX: A41.9 Sepsis, unspecified organism (principal); E43 Unspecified severe protein-calorie malnutrition; L89.154 Pressure ulcer of sacral region, stage 4; R65.21 Severe sepsis with septic shock; R53.2 Functional quadriplegia; K72.00 Acute and subacute hepatic failure without coma; E87.20 Acidosis, unspecified; N13.30 Unspecified hydronephrosis; G35 Multiple sclerosis; E05.90 Thyrotoxicosis, unspecified without thyrotoxic crisis or storm; L89.622 Pressure ulcer of left heel, stage 2; L89.892 Pressure ulcer of other site, stage 2; R74.01 Elevation of levels of liver transaminase levels; E88.09 Other disorders of plasma-protein metabolism, not elsewhere classified; R31.9 Hematuria, unspecified; D63.8 Anemia in other chronic diseases classified elsewhere; I48.0 Paroxysmal atrial fibrillation; R31.0 Gross hematuria; E83.42 Hypomagnesemia; E87.6 Hypokalemia; E83.39 Other disorders of phosphorus metabolism; Z68.27 Body mass index [BMI] 27.0-27.9, adult
CPT/HCPCS: 0241U-QW; 36415; 36430; 36600; 71045-TC-FY; 71260-TC; 74177-TC; 76705-TC; 76775-TC; 80048; 80053; 80076; 81003; 82272; 82550; 82570; 82803; 82962; 83010; 83605; 83615; 83690; 83735; 84100; 84300; 84484; 84540; 85025; 85027; 85379; 85384; 85610; 85730; 86704; 86709; 86803; 86850; 86900; 86901; 86922; 87040; 87070; 87086; 87184; 87186; 87205; 87340; 87481; 87517; 93005; 93010; 99285-25; J0637; J0878; J3490; P9017; P9058